=== PATIENT | female | born 1960 | race Caucasian/White ===

== ENCOUNTER → 2018-06-06 | Outpatient (CLI) | payer OTHER ==
[~2018-06-06] MED LIST: ESTR10TA4 VG; HYDR2TAB4 PO; IBU600 PO; IBUP-136 PO; IBUP800T37 PO; LOR5 PO
--- NOTE | 2018-06-06 14:20 | RADIOLOGY IMAGING REPORT ---
FACILITY: [facility] PATIENT NAME: LUZ BARBER : [id number] MR: [id number] V: [id number] EXAM DATE: ORDERING PHYSICIAN: PAYTON VARGAS TECHNOLOGIST: Jessica Bettencourt PROCEDURE:BILATERAL DIGITAL SCREENING MAMMOGRAM WITH CAD ASSISTED INTERPRETATION & 3D TOMOSYNTHESIS COMPARISON:Prior mammograms 05/21/16, 05/12/15, 03/01/14, 12/22/12, 11/26/11. INDICATIONS:SCREENING FINDINGS: Moderate amount of fibroglandular tissue is seen throughout the breasts. The parenchymal pattern has remained stable allowing for difference in mammographic technique & patient positioning. There is no evidence of malignant appearing mass, malignant appearing calcifications or other secondary sign of malignancy in either breast. DIAGNOSTIC CATEGORY 1--NEGATIVE. RECOMMENDATIONS: ROUTINE MAMMOGRAM AND CLINICAL EVALUATION. IMPRESSION: BIRADS 1: Negative. No significant abnormality is seen. Dictated by: Angelica Edward M.D. on 06/06/2018 at 8:26 Transcribed by: YURY on 06/06/2018 at 8:46 Approved by: Angelica Edward M.D. on 06/06/2018 at 14:19 [facility]
== END ==
LOC: MAMO 01:16
PROVIDERS: ATTEND Family Medicine
DX: Z12.31 Encounter for screening mammogram for malignant neoplasm of breast (principal)
CPT/HCPCS: 77063; 77067

== ENCOUNTER → 2018-06-12 | Outpatient (CLI) | payer OTHER ==
--- NOTE | 2018-06-12 09:17 | RADIOLOGY IMAGING REPORT ---
FACILITY: [facility] [place] PATIENT NAME: Sade Rocha : 1960 MR: [id number] V: [id number] EXAM DATE: ORDERING PHYSICIAN: PAYTON VARGAS TECHNOLOGIST: Location: [facility] Patient: Sade Rocha : 1960 Visit/Account:[id number] Date of Sevice: 06/12/2018 EXAMINATION: Focused right upper quadrant ultrasound COMPARISON: None HISTORY: Elevated liver functions. Findings: Standard right upper quadrant abdominal ultrasound is performed. Pancreas: Visualized portions of the pancreas are unremarkable. Liver and portal vein: Negative. Gallbladder and biliary system: No gallbladder stone or sludge. No wall thickening, pericholecystic f luid, or sonographic Romo's. The visualized common bile duct is not dilated. Visualized aorta and IVC: Negative. Kidneys: The right kidney measures 9.4 x 3.4 x 4.9 cm . Lower pole 5 mm echogenic nonshadowing focus is suggestive of a small fat-containing lesion such as an angiomyolipoma. No mass, hydronephrosis, o r definite stone is otherwise identified. Ascites: None. IMPRESSION: Unremarkable liver and biliary system. Report Dictated By: Robert Valerio MD at 06/12/2018 9:10 AM Report E-Signed By: Robert Valerio MD at 06/12/2018 9:12 AM WSN:[id number]
== END ==
LOC: US 04:35
PROVIDERS: ATTEND Family Medicine
DX: R94.5 Abnormal results of liver function studies (principal)
CPT/HCPCS: 76705